=== PATIENT | female | born 1945 | race Caucasian/White ===

== ENCOUNTER 2020-03-25 08:33 | Observation (INO) | payer MEDICARE ==
[~2020-03-25] VITALS: Ht 170.2 cm; Wt 68.3 kg
[2020-03-25] MEDS ORDERED: METF500T27 PO (09:11)
[2020-03-25] MEDS ORDERED: LOSA100T14 PO (09:12)
[2020-03-25] MEDS ORDERED: ATOR40TA PO (09:12)
[2020-03-25] MEDS ORDERED: CARV25TA12 PO (09:13)
[2020-03-25] MEDS ORDERED: LATA2.5D3 EACHEYE (09:13)
[2020-03-25] MEDS ORDERED: TICA90TA PO (09:13)
[2020-03-25] MEDS ORDERED: ASPI81TA45 PO (09:14)
[2020-03-25 09:16] LABS: BASOPHILS # (AUTO) 0.06 x10^3/uL (0-0.1); BASOPHILS % (AUTO) 1 % (0-1); EOSINOPHILS # (AUTO) 0.14 x10^3/uL (0-0.4); EOSINOPHILS % (AUTO) 2 % (1-7); LYMPHOCYTES # (AUTO) 1.33 x10^3/uL (1-3.4); LYMPHOCYTES % (AUTO) 22 % (22-44); MD NO; MEAN CORPUSCULAR HGB CONC 32.9 g/dL (32.4-35.8); MEAN CORPUSCULAR VOLUME 94.3 fL (80-100); MEAN PLATELET VOLUME 8.4 fL (7.4-10.4); MONOCYTES # (AUTO) 0.45 x10^3/uL (0.2-0.8); MONOCYTES % (AUTO) 8 % (2-9); NEUTROPHILS # (AUTO) 4.04 x10^3/uL (1.8-6.8); NEUTROPHILS % (AUTO) 67 % (42-75); PLATELET COUNT 431 x10^3/uL (130-400); RED BLOOD COUNT 4.28 x10^6/uL (3.82-5.3); RED CELL DISTRIBUTION WIDTH 14.2 % (9.6-15.2)
[2020-03-25] MEDS ORDERED: OMEP20TA62 PO (09:16)
[2020-03-25] MEDS ORDERED: ACET-1600 PO (09:16)
[2020-03-25] MEDS ORDERED: GLIP2.5T3 PO (09:17)
[2020-03-25] MEDS ORDERED: CHOL10003 PO (09:19)
[2020-03-25] MEDS ORDERED: MAGN100T6 PO (09:20)
[2020-03-25] MEDS ORDERED: CYAN50008 PO (09:21)
[2020-03-25 09:26] LABS: ALANINE AMINOTRANSFERASE 23 U/L (12-78); ALBUMIN 4.2 g/dL (3.4-5.0); ANION GAP 7 mmol/L (5-15); CALCIUM 9.7 mg/dL (8.5-10.1); CHLORIDE 106 mmol/L (98-107); CREATININE 1.18 mg/dL (0.55-1.02)
[2020-03-25 09:30] LABS: ALKALINE PHOSPHATASE 77 U/L (45-117); BILIRUBIN,TOTAL 0.5 mg/dL (0.2-1.0); TOTAL PROTEIN 8.7 g/dL (6.4-8.2); TROPONIN I < 0.015 ng/mL (0.000-0.045)
[2020-03-25] MEDS ORDERED: NITROGLYCERIN OINT 2%, 1GM TP ONE ×2 (10:26→10:30)
--- NOTE | 2020-03-25 10:43 | NUR ---
NITROPASTE APPLIED PER DEC. VS UPDATED AND WNL. PT AMBULATED TO BR AND WAS STEADY ON FEET.
--- NOTE | 2020-03-25 11:38 | NUR ---
SBAR TELEPHONE HAND-OFF REPORT GIVEN TO TREMAYNE DELONG.
[2020-03-25] MEDS ORDERED: ACETAMINOPHEN 325 MG TABLET ONE (11:44)
--- NOTE | 2020-03-25 11:58 | NUR ---
CALLED RN SINDI AND REQUESTED THAT SHE GIVE THE PATIENT'S BRILINTA SINCE WE DO NOT HAVE THE MED HERE IN THE ER. SINDI AGREES TO GIVE. PATIENT HAS GONE UP TO THE FLOOR AT THIS TIME AND IS NO LONGER HERE IN THE ED.
[2020-03-25 12:00] VITALS: BP 166/91
[2020-03-25] MEDS ORDERED: TICAGRELOR 90 MG TABLET PO ONE (12:00)
[2020-03-25] MEDS ORDERED: ONDANSETRON 2MG/ML, 2ML IVPush PRN (13:00)
[2020-03-25] MEDS: LOSARTAN 100 MG TAB PO SCH (13:25)
[2020-03-25] MEDS: HEPARIN 5,000 UNITS/ML, 1ML SQ SCH (13:26)
[2020-03-25] MEDS ORDERED: MORPHINE SULFATE 4 MG/ML, 1ML IVPush ONE (14:00)
[2020-03-25] MEDS ORDERED: MIDAZOLAM 1 MG/ML, 5ML ONE (14:19)
[2020-03-25] MEDS ORDERED: FENTANYL PF 100 MCG/2ML ONE (14:19)
[2020-03-25 14:20] VITALS: BP 179/101
[2020-03-25] MEDS ORDERED: VERAPAMIL 2.5 MG/ML, 2ML ONE (14:20)
[2020-03-25] MEDS ORDERED: BIVALIRUDIN 250 MG ONE (14:20)
[2020-03-25] MEDS ORDERED: LIDOCAINE-MPF 1%, 5ML ONE (14:20)
[2020-03-25] MEDS ORDERED: HEPARIN 1,000 UNITS/ML, 10ML ONE (14:20)
[2020-03-25] MEDS ORDERED: SODIUM CHLORIDE 0.9% 1,000 ML IV SCH ×2 (14:30→15:34)
[2020-03-25] MEDS ORDERED: SODIUM CHLORIDE 0.9% 500 ML IV SCH (14:30)
[2020-03-25] MEDS ORDERED: BIVALIRUDIN 250 MG in SODIUM CHLORIDE 0.9% 50 ML IV SCH (15:34)
[2020-03-25] MEDS: INSULIN LISPRO 100 UNITS/ML, PEN SQ-INSULIN SCH ×2 (16:00→21:00)
[2020-03-25 19:23] VITALS: BP 128/76
[2020-03-25 19:56] LABS: TROPONIN I 0.855 ng/mL (0.000-0.045)
[2020-03-25] MEDS ORDERED: LATANOPROST OPHTH 0.005%, 2.5ML EACHEYE SCH (21:00)
[2020-03-25] MEDS ORDERED: ATORVASTATIN 40 MG TABLET PO SCH (21:00)
[2020-03-25] MEDS ORDERED: MAGNESIUM CITRATE 100 MG HOMEMEDPO SCH (21:00)
[2020-03-25] MEDS: TICAGRELOR 90 MG TABLET PO SCH (21:00)
[2020-03-25] MEDS ORDERED: ASPIRIN 81 MG TABLET EC PO SCH (21:00)
[2020-03-25 22:12] VITALS: BP 155/83
[2020-03-25] MEDS: CARVEDILOL 25 MG TABLET PO SCH (22:17)
[2020-03-25] MEDS: PANTOPRAZOLE 40MG TABLET PO SCH (22:17)
[2020-03-25] MEDS: ACETAMINOPHEN 325 MG TABLET PO PRN (22:30)
[2020-03-26] MEDS: HEPARIN 5,000 UNITS/ML, 1ML SQ SCH ×2 (01:00→12:43)
[2020-03-26 01:09] LABS: TROPONIN I 0.554 ng/mL (0.000-0.045)
[2020-03-26 01:34] VITALS: BP 127/70
[2020-03-26] MEDS: ACETAMINOPHEN 325 MG TABLET PO PRN (06:06)
[2020-03-26 06:32] LABS: ANION GAP 7 mmol/L (5-15); CHLORIDE 105 mmol/L (98-107)
[2020-03-26 06:35] LABS: CALCIUM 8.7 mg/dL (8.5-10.1); CREATININE 1.15 mg/dL (0.55-1.02)
[2020-03-26 06:37] VITALS: BP 135/77
[2020-03-26] MEDS: INSULIN LISPRO 100 UNITS/ML, PEN SQ-INSULIN SCH ×2 (07:00→11:00)
[2020-03-26 07:06] LABS: BASOPHILS # (AUTO) 0.05 x10^3/uL (0-0.1); BASOPHILS % (AUTO) 1 % (0-1); EOSINOPHILS # (AUTO) 0.11 x10^3/uL (0-0.4); EOSINOPHILS % (AUTO) 2 % (1-7); LYMPHOCYTES # (AUTO) 1.25 x10^3/uL (1-3.4); LYMPHOCYTES % (AUTO) 18 % (22-44); MD NO; MEAN CORPUSCULAR HEMOGLOBIN 30.9 pg (27.0-34.8); MEAN CORPUSCULAR HGB CONC 32.6 g/dL (32.4-35.8); MEAN CORPUSCULAR VOLUME 94.7 fL (80-100); MEAN PLATELET VOLUME 8.1 fL (7.4-10.4); MONOCYTES # (AUTO) 0.59 x10^3/uL (0.2-0.8); MONOCYTES % (AUTO) 8 % (2-9); NEUTROPHILS # (AUTO) 4.97 x10^3/uL (1.8-6.8); NEUTROPHILS % (AUTO) 71 % (42-75); PLATELET COUNT 342 x10^3/uL (130-400); RED BLOOD COUNT 3.66 x10^6/uL (3.82-5.3); RED CELL DISTRIBUTION WIDTH 13.8 % (9.6-15.2)
[2020-03-26] MEDS: CARVEDILOL 25 MG TABLET PO SCH (07:45)
[2020-03-26] MEDS: TICAGRELOR 90 MG TABLET PO SCH (07:46)
[2020-03-26] MEDS: PANTOPRAZOLE 40MG TABLET PO SCH (07:46)
[2020-03-26] MEDS: LOSARTAN 100 MG TAB PO SCH (08:31)
[2020-03-26] MEDS ORDERED: CHOLECALCIFEROL 1,000 UNIT TABLET PO SCH (09:00)
[2020-03-26] MEDS ORDERED: CYANOCOBALAMIN 1,000 MCG TABLET PO SCH (09:00)
== END 2020-03-26 12:50 | disposition home or self-care (01) ==
LOC: ED 09:33 → EDIP 10:12 → INTOOBSV 10:12 → 5SO 11:54 → DCLOUNGE 03-26 12:43
PROVIDERS: ADMIT Internal Medicine; ATTEND Internal Medicine
DX: R07.89 Other chest pain (principal); I10 Essential (primary) hypertension; E78.5 Hyperlipidemia, unspecified; E11.9 Type 2 diabetes mellitus without complications; K21.9 Gastro-esophageal reflux disease without esophagitis; I25.2 Old myocardial infarction; I25.10 Atherosclerotic heart disease of native coronary artery without angina pectoris; K44.9 Diaphragmatic hernia without obstruction or gangrene; E78.00 Pure hypercholesterolemia, unspecified; Z85.42 Personal history of malignant neoplasm of other parts of uterus; Z86.72 Personal history of thrombophlebitis
CPT/HCPCS: 36415; 71045; 80048; 80053; 82962; 83880; 84484; 85025; 85379; 92920; 93005; 93458; 96372; 99156; 99157; 99285; C1725; C1769; C1874; C1887; C1894; G0378; J0583; J1644; J2250; J3010; J7030; J7040; Q9967